=== PATIENT | female | born 1960 | race Caucasian/White ===

== ENCOUNTER → 2020-08-26 08:26 | Outpatient (BNV) | payer OTHER, SELFPAY | PROVIDERS: PCP Internal Medicine; Visit Provider Internal Medicine | DX: D72.819 Decreased white blood cell count, unspecified (principal) | CPT/HCPCS: 99213; 99214 ==

== ENCOUNTER → 2020-12-18 08:39 | Outpatient (BNVA) | payer OTHER, SELFPAY | PROVIDERS: Visit Provider Advanced Practice Midwife ==

== ENCOUNTER 2020-12-19 11:59 | Outpatient (REF) | payer OTHER, SELFPAY ==
[2020-12-24 01:06] LABS: HPV mRNA E6/E7 rflx Not Detected (Not Detected)
== END 2020-12-19 12:00 | disposition home or self-care (01) ==
LOC: HO.LNP 11:59
PROVIDERS: Visit Provider Advanced Practice Midwife
DX: Z01.419 Encounter for gynecological examination (general) (routine) without abnormal findings (principal); Z11.51 Encounter for screening for human papillomavirus (HPV)
CPT/HCPCS: 87624; 88142

== ENCOUNTER 2021-02-11 15:11 | Outpatient (REF) | payer OTHER, SELFPAY ==
--- NOTE | ~2021-02-11 | XR_ITS ---
EXAMINATION: RIGHT HAND, LUMBAR SPINE, AND RIGHT ELBOW. CLINICAL INFORMATION: Fall with pain COMPARISON: Lumbar spine of February 26, 2014 TECHNIQUE: 3 views right hand, 3 views right elbow, and 3 views lumbar spine. FINDINGS: There is no evidence of acute fracture or dislocation of the right hand. There appears to be some mild soft tissue swelling seen overlying the first and second metacarpal phalangeal joints. There is no evidence of acute fracture or dislocation of the right elbow. No right elbow effusion is seen. There is some soft tissue swelling seen overlying the olecranon. There is mild scoliosis of the lumbar spine convex right at the thoracolumbar junction. There has been partial sacralization of L5. No acute fracture, spinal listhesis, spondylolysis is identified. There is some spurring present most prominent at the L2-L3 level. Pedicles are intact. XR/XR lumbar spine 2-3V IMPRESSION: No acute fracture or dislocation of the right hand. No acute fracture or effusion of the right elbow. Sacralization of L5 without acute fracture, spondylolisthesis, or spondylolysis of the lumbar spine.
--- NOTE | ~2021-02-11 | XR_ITS ---
EXAMINATION: RIGHT HAND, LUMBAR SPINE, AND RIGHT ELBOW. CLINICAL INFORMATION: Fall with pain COMPARISON: Lumbar spine of February 26, 2014 TECHNIQUE: 3 views right hand, 3 views right elbow, and 3 views lumbar spine. FINDINGS: There is no evidence of acute fracture or dislocation of the right hand. There appears to be some mild soft tissue swelling seen overlying the first and second metacarpal phalangeal joints. There is no evidence of acute fracture or dislocation of the right elbow. No right elbow effusion is seen. There is some soft tissue swelling seen overlying the olecranon. There is mild scoliosis of the lumbar spine convex right at the thoracolumbar junction. There has been partial sacralization of L5. No acute fracture, spinal listhesis, spondylolysis is identified. There is some spurring present most prominent at the L2-L3 level. Pedicles are intact. XR/XR hand wrist RT IMPRESSION: No acute fracture or dislocation of the right hand. No acute fracture or effusion of the right elbow. Sacralization of L5 without acute fracture, spondylolisthesis, or spondylolysis of the lumbar spine.
--- NOTE | ~2021-02-11 | XR_ITS ---
EXAMINATION: RIGHT HAND, LUMBAR SPINE, AND RIGHT ELBOW. CLINICAL INFORMATION: Fall with pain COMPARISON: Lumbar spine of February 26, 2014 TECHNIQUE: 3 views right hand, 3 views right elbow, and 3 views lumbar spine. FINDINGS: There is no evidence of acute fracture or dislocation of the right hand. There appears to be some mild soft tissue swelling seen overlying the first and second metacarpal phalangeal joints. There is no evidence of acute fracture or dislocation of the right elbow. No right elbow effusion is seen. There is some soft tissue swelling seen overlying the olecranon. There is mild scoliosis of the lumbar spine convex right at the thoracolumbar junction. There has been partial sacralization of L5. No acute fracture, spinal listhesis, spondylolysis is identified. There is some spurring present most prominent at the L2-L3 level. Pedicles are intact. XR/XR elbow RT min 3V IMPRESSION: No acute fracture or dislocation of the right hand. No acute fracture or effusion of the right elbow. Sacralization of L5 without acute fracture, spondylolisthesis, or spondylolysis of the lumbar spine.
== END 2021-02-11 15:12 | disposition home or self-care (01) ==
LOC: HO.HMGCX 15:11
PROVIDERS: PCP Internal Medicine; Visit Provider Physician Assistant
DX: M25.531 Pain in right wrist (principal); M54.50 Low back pain, unspecified; M79.641 Pain in right hand; M25.521 Pain in right elbow; Z91.81 History of falling
CPT/HCPCS: 72100; 73080; 73110; 73130

== ENCOUNTER 2022-02-17 11:25 | Outpatient (REF) | payer OTHER, SELFPAY ==
[2022-02-23 16:30] LABS: HPV mRNA E6/E7 rflx Not Detected (Not Detected)
== END 2022-02-17 11:26 | disposition home or self-care (01) ==
LOC: HO.LNP 11:25
PROVIDERS: PCP Internal Medicine; Visit Provider Advanced Practice Midwife
DX: Z01.419 Encounter for gynecological examination (general) (routine) without abnormal findings (principal); Z11.51 Encounter for screening for human papillomavirus (HPV); N95.2 Postmenopausal atrophic vaginitis; Z87.42 Personal history of other diseases of the female genital tract
CPT/HCPCS: 87624; 88142

== ENCOUNTER 2023-05-30 09:31 | Outpatient (AMB) | payer OTHER, SELFPAY ==
--- NOTE | 2023-05-30 09:42 | A.OFFVIS_ITS ---
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/DO NOT RS Systems Design Engineer Required: Yes Systems Design Engineer Language: Honing Machine Set Up Operator Tool Name: Alexander [id number] Information Interpreted: non-clinical & clinical Fast Food Team Member: Fast Food Team Member Present (Kiah) Allergies celecoxib [From CELEBREX] Allergy (Unknown, Verified 05/30/23 09:43) BLEEDING cortisone [CORTISONE] Allergy (Unknown, Verified 05/30/23 09:43) RASH cyanocobalamin (vitamin B12) [From BTREX] Allergy (Unknown, Verified 05/30/23 09:43) RASH folic acid [From BTREX] Allergy (Unknown, Verified 05/30/23 09:43) RASH gabapentin [GABAPENTIN] Allergy (Unknown, Verified 05/30/23 09:43) DIZZINESS indomethacin [INDOMETHACIN] Allergy (Unknown, Verified 05/30/23 09:43) VOMITING intrinsic factor [From BTREX] Allergy (Unknown, Verified 05/30/23 09:43) RASH prednisone [PREDNISONE] Allergy (Unknown, Verified 05/30/23 09:43) ABD PAIN, abdominal pain,sob, swelling pyridoxine [From BTREX] Allergy (Unknown, Verified 05/30/23 09:43) RASH buprenorphine Adverse Reaction (Unknown, Verified 05/30/23 09:43) hives tapentadol Adverse Reaction (Unknown, Verified 05/30/23 09:43) headache chronic Cortisone Allergy (Mild, Uncoded 02/17/22 11:31) Unknown HPI Comments Details: Presenting for annual exam. No complaints. Last Pap/HPV was negative in 03/01 Last Mammogram was in 01/29 at [place], report not available but was normal according to the patient Last Colonoscopy was in 11/21, the recommendation was to repeat in 10 years ON LICENSE OF [facility] Medical History Hx of gingivitis Arthritis History of herniated intervertebral disc Surgical History History of rotator cuff surgery Hx of section Hx of tubal ligation Family History Mother Parkinson disease Stroke High cholesterol HTN (hypertension) Sister Stroke Asthma Sister Stroke Brother Prostate cancer Social History Household Members: None Housing: Apartment Alcohol intake: former Patient Tobacco Use Status: Never used Tobacco service: No Current occupational status: disabled Female Reproductive History Menstrual Age of Menarche: 12 control method: permanent sterilization Permanent Sterilization: BTL Total pregnancies: 2 Full term: 2 Number of Living Children: 2 Date of last pap smear: 02/17/22 (neg pap and hpv) Date of Mammogram: 02/03/23 (@[facility]) Review of Systems Const All systems reviewed & are unremarkable except as noted in HPI and below Card Reports as per HPI Resp Reports as per HPI GI Reports as per HPI and Reports no additional complaints Reports as per HPI Physical Exam Vital Signs: Last Vital Signs BP 100/60 05/30/23 09:43 BMI result Body Mass Index 20.8 Const General: cooperative, healthy appearing and comfortable Chest Chest palpation & inspection: normal inspection of the chest and normal palpation of entire chest wall Breast/axilla inspection: normal inspection of the breasts and normal inspection of the axillae Breast/axilla palpation: normal palpation of the breasts, normal palpation of the axillae and no axillary lymphadenopathy Resp Effort & Inspection: normal respiratory effort Auscultation: clear to auscultation bilaterally Percussion: percussion normal Cardio Palpation: normal PMI Rate: regular rate Rhythm: regular rhythm Heart sounds: no murmurs and no rubs Peripheral pulses: Peripheral pulses 2+ throughout GI Inspection: Yes normal to inspection Palpation (GI): Soft to palpation, nontender, no guarding, not rigid and No hepatosplenomegaly present Percussion: Yes normal to percussion Auscultation: normal bowel sounds Rectal Exam - Female: deferred General: Yes bladder normal to palpation External Female Exam: No lesion Speculum Exam - Vagina: normal appearance of the vagina, normal palpation, normal vaginal discharge and not erythematous Speculum Exam - Cervix: normal appearance of the cervix and normal palpation Bimanual exam- vagina & uterus: normal bimanual exam, normal palpation, uterine size normal, bladder normal to palpation, consistency normal and normal palpation Bimanual Exam- Adnexa, other: normal adnexae, no masses and no tenderness Assessment & Plan Assessment & Plan (1) Well woman exam: Code(s): Z01.419 - Encounter for gynecological examination (general) (routine) without abnormal findings Category: Medical Plan: Co testing not indicated this year. Counseled the patient about the recommended dietary allowance of 1200 mg of Calcium & 600 IU of vitamin D. Instructions given the patient to schedule next screening Mammogram in 01/30. The patient was instructed to perform monthly self-breast exams and schedule annual exam in a year. All questions answered and the patient verbalized understanding.
[2023-05-30 09:43] VITALS: BP 100/60; BMI 20.8
--- OUTSIDE RECORDS SUMMARY | 2023-05-30 09:44 | XMS_ITS | Continuity of Care Document ---
Author Organization [facility] Address [address] [place] [address]- Care Team Providers Care Military Equipment Specialist Name Role Phone Not on Staff, PCP Primary Care Physician Unavail able [place] [facility] [place] - 08/02/[address] [address]- Encounter Diagnosis Unspecified fracture of upper end of right humerus, subsequent encounter for fracture with routine healing(Final) - Discharge Disposition: A-D/C Home Attending Physician: Les Arauz Admitting Physician: Not on Staff, Admitting MD Referring Physician: Les Arauz Allergies, Adverse Reactions, Alerts Substance Reaction Severity Status gabapentin Migraine Nausea Active penicillins Active Indocin Active CeleBREX Active Medications Ibuprofen Maintenance, 08/07/13 18:30:51 Start Date: 08/07/13 Status: Ordered Meclizine By Mouth, 3 times a day, 0 Refills, Maintenance, 08/07/13 18:31:00 Start Date: 08/07/13 Status: Ordered Social History Social History Type Response Smoking Status Never (less than 100 in lifetime) entered on: 03/15/22 Sex Patient Care team information Care Team Personnel Name: Not on Staff, PCP Position: S Physician (General Medicine) Member Role: PCP Care Team Related Persons Name: TAL NUR Name: MIROSLAVA ISABEL
--- OUTSIDE RECORDS SUMMARY | 2023-05-30 09:44 | XMS_ITS | Continuity of Care Document ---
Author Organization [facility] Address [address] [place] [address]- Care Team Providers Care Calender Roll Operator Name Role Phone Not on Staff, PCP Primary Care Physician Unavail able Encounter [facility] [place] Date(s): 06/23/22 - 10/07/[address] [address] Encounter Diagnosis Procedure and treatment not carried out, unspecified reason(Final) - Discharge Disposition: A-D/C Home Attending Physician: Not on Staff, Attending MD Admitting Physician: Not on Staff, Admitting MD Referring Physician: Not on Staff, Referring MD Allergies, Adverse Reactions, Alerts Substance Reaction Severity Status gabapentin Migraine Nausea Active penicillins Active Indocin Active CeleBREX Active Medications Jaquelin By Mouth, 0 Refills, Maintenance, 08/12/22 10:07:00 EDT, Partial fill upon patient request if the prescription is for a schedule II opioid drug. Start Date: 08/12/22 Status: Ordered Atenolol By Mouth, Daily, 0 Refills, Maintenance, 08/12/22 10:07:00 EDT, Partial fill upon patient request if the prescription is for a schedule II opioid drug. Start Date: 08/12/22 Status: Ordered duloxetine 30 mg oral enteric coated capsule TAKE 1 CAPSULE BY MOUTH ONCE DAILY Start Date: 08/12/22 Status: Ordered meloxicam 7.5 mg oral tablet TAKE 1 TABLET BY MOUTH ONCE DAILY Start Date: 08/12/22 Status: Ordered naproxen 500 mg oral tablet 1 tablet = 500 mg, By Mouth, 2 times a day, with food, # 60 tablet, 0 Refills, Maintenance, 08/13/22 8:45:00 EDT, Tablet, Partial fill upon patient request if the prescription is for a schedule II opioid drug. Start Date: 08/13/22 Status: Ordered oxyCODONE 5 mg oral tablet See Instructions, PRN, 1-2 tablet By Mouth Every 4 hours as needed for pain, Refills 0, Tot. Refills 0, Maintenance, as needed for pain, 08/13/22 8:45:00 EDT, Instructions Replace Required Details, Partial fill upon patient request if the prescription... Start Date: 08/13/22 Status: Ordered senna - oral tablet all, By Mouth, Daily, 0 Refills, Maintenance, 08/12/22 10:07:00 EDT, Partial fill upon patient request if the prescription is for a schedule II opioid drug. Start Date: 08/12/22 Status: Ordered Vitamin D Inj International_Units, Intramuscular, Daily, 0 Refills, Maintenance, 08/12/22 10:06:00 EDT, Injection, Partial fill upon patient request if the prescription is for a schedule II opioid drug. Start Date: 08/12/22 Status: Ordered Vitamin D3 1000 intl units oral capsule atenolol, By Mouth, Daily, # 100 capsule, 0 Refills, Maintenance, 08/12/22 10:06:00 EDT, Capsule, Partial fill upon patient request if the prescription is for a schedule II opioid drug. Start Date: 08/12/22 Status: Ordered Social History Social History Type Response Smoking Status Never (less than 100 in lifetime) entered on: 03/15/22 Sex Patient Care team information Care Team Personnel Name: Not on Staff, PCP Position: S Physician (General Medicine) Member Role: PCP Care Team Related Persons Name: TAL NUR Name: MIROSLAVA ISABEL
--- OUTSIDE RECORDS SUMMARY | 2023-05-30 09:44 | XMS_ITS | Continuity of Care Document ---
Author Organization [facility] Address [address] [place] [address]- Care Team Providers Care Mechanical Systems Design Engineer Name Role Phone Not on Staff, PCP Primary Care Physician Unavail able Encounter [facility] [place] Date(s): 05/06/22 - 05/06/[address] [address] Discharge Disposition: A-D/C Home Attending Physician: Not [...]
--- OUTSIDE RECORDS SUMMARY | 2023-05-30 09:44 | XMS_ITS | Continuity of Care Document ---
Author Organization [facility] Address [address] [place] [address]- Care Team Providers Care Manager Equity Name Role Phone Juan Delvalle MD, Alix Toro Primary Care Physicia n [place] [facility] [place] [id number] Date(s): 08/30/22 - 09/29/[address] [address] Attending Physician: Dedrick Salomon Admitting Physician: AdmtrDedrick Referring Physician: Admtr, Ar8 Allergies, Adverse Reactions, Alerts Substance Reaction Severity [...] Care team information Care Team Personnel Name: Juan Delvalle MD, Alix Toro Position: Reference Physician Member Role: PCP Address: Address: [address] [place] [address] [place] [address]- Care Team Related Persons Name: TAL NUR Name: MIROSLAVA ISABEL
--- OUTSIDE RECORDS SUMMARY | 2023-05-30 09:45 | XMS_ITS | Continuity of Care Document ---
Author Organization [facility] Address [address] [place] [address]- Care Team Providers Care Tattoo Identifier Name Role Phone Not on Staff, PCP Primary Care Physician Unavail able Encounter [facility] Date(s): 06/14/22 - 07/14/[address] [address] Attending Physician: Not on Staff, Attending MD Allergies, Adverse Reactions, Alerts Substance Reaction Severity Status gabapentin Migraine Nausea Active penicillins Active CeleBREX Active Indocin Active Medications Ibuprofen Maintenance, 08/07/13 18:30:51 Start [...]
--- OUTSIDE RECORDS SUMMARY | 2023-05-30 09:45 | XMS_ITS | Continuity of Care Document ---
Author Organization [facility] Address [address] [place] [address]- Care Team Providers Care Rn Cardiology Name Role Phone Not on Staff, PCP Primary Care Physician Unavail able [place] [facility] [place](s): 06/07/22 - 11/20/[address] [address]- Encounter Diagnosis Procedure and treatment not carried out for other reasons(Final) - Discharge Disposition: A-D/C Home Attending Physician: Not on Staff, Attending MD Admitting Physician: Not on Staff, Admitting MD Referring Physician: Not on Staff, Referring MD Allergies, Adverse Reactions, Alerts Substance Reaction Severity Status gabapentin Migraine Nausea Active penicillins Active CeleBREX Active Indocin Active Medications Jaquelin By Mouth, 0 Refills, [...]
== END 2023-05-30 10:29 | disposition home or self-care (01) ==
LOC: HO.HWS 09:31
PROVIDERS: PCP Internal Medicine; Visit Provider Obstetrics & Gynecology
DX: Z01.419 Encounter for gynecological examination (general) (routine) without abnormal findings (principal)
CPT/HCPCS: 99396

== ENCOUNTER → 2023-05-30 09:31 | Outpatient (BNVA) | payer OTHER, SELFPAY | PROVIDERS: PCP Internal Medicine; Visit Provider Obstetrics & Gynecology | DX: Z01.419 Encounter for gynecological examination (general) (routine) without abnormal findings (principal) | CPT/HCPCS: 99396 ==